=== PATIENT | male | born 1985 | race Hispanic/Latino ===

== ENCOUNTER 2018-05-21 02:50 | Emergency (ER) | payer OTHER ==
[2018-05-21] MEDS ORDERED: MORPHINE 4 MG/ML SYR ONE (03:07)
[2018-05-21] MEDS ORDERED: ONDANSETRON 4 MG/2 ML VIAL ONE (03:07)
[2018-05-21] MEDS ORDERED: NA CHLORIDE 0.9% 1,000 ML ONE (03:08)
[2018-05-21 03:17] LABS: Absolute Lymphocytes (CBC) 2.7 K/uL (0.7-4.9); Absolute Monocytes 0.5 K/uL (0.1-1.3); Absolute Neutrophil 2.1 K/uL (1.8-8.0); Basophils % 0.9 % (0-1.3); Eosinophils % 1.4 % (0-4.4); Hematocrit 46.4 % (39.6-49.0); Lymphocytes % 49.7 % (15.3-44.8); MPV 9.7 fL (7.6-11.3); Monocytes % 8.9 % (3.3-12.3); RBC Red Blood Cell Count 5.27 M/uL (4.33-5.43)
[2018-05-21 03:32] LABS: Albumin 4.4 g/dL (3.4-5.0); Bilirubin Direct 0.3 mg/dL (0-0.2); Bilirubin Total 0.9 mg/dL (0.2-1.0); Potassium 3.7 mmol/L (3.5-5.1)
--- NOTE | 2018-05-21 03:39 | EDPHYS ---
Physician Documentation [facility] Name: Flaquito Olivier Age: 33 yrs Sex: Male : 1985 Arrival Date: 05/21/2018 Time: 02:52 Bed 7 Private MD: ED Physician Moody Howe HPI: 05/21 03:25 This 33 yrs old Male presents to ER via Wheelchair with complaints of tw4 Abdominal Pain. 03:25 The patient complains of pain in the left mid back. The pain radiates to the left lower tw4 quadrant. Onset: The symptoms/episode began/occurred just prior to arrival, today. Modifying factors: The symptoms are alleviated by nothing. the symptoms are aggravated by palpation/percussion. Associated signs and symptoms: The patient has no apparent associated signs or symptoms. Severity of pain: At its worst the pain was severe in the emergency department the pain. The patient has not experienced similar symptoms in the past. Historical: - Allergies: 03:03 No Known Allergies; fc - Home Meds: 03:03 omeprazole 40 mg Oral cpDR 1 cap once daily [Active]; fc - PMHx: 03:03 GERD; fc - PSHx: 03:03 None; fc - Immunization history:: Last tetanus immunization: up to date Flu vaccine is up to date. - Social history:: Smoking status: Patient/guardian denies using tobacco, Patient uses alcohol, occasionally. Patient/guardian denies using street drugs. - Ebola Screening: : Patient negative for fever greater than or equal to 101.5 degrees Fahrenheit, and additional compatible Ebola Virus Disease symptoms Patient denies exposure to infectious person Patient denies travel to an Ebola-affected area in the 21 days before illness onset. ROS: 03:25 Constitutional: Negative for fever, chills, and weight loss, Eyes: Negative for injury, tw4 pain, redness, and discharge, Cardiovascular: Negative for chest pain, palpitations, and edema, Respiratory: Negative for shortness of breath, cough, wheezing, and pleuritic chest pain. 03:25 MS/Extremity: Negative for injury and deformity, Skin: Negative for injury, rash, and discoloration, Neuro: Negative for headache, weakness, numbness, tingling, and seizure. 03:25 Abdomen/GI: Positive for abdominal pain, Negative for nausea and vomiting, nausea, vomiting, and diarrhea, nausea, vomiting, abdominal cramps, abdominal distension, anorexia, dysphagia, black/tarry stool, rectal pain. 03:25 Back: Positive for pain at rest, flank pain, on the right, Negative for injury or acute deformity, decreased range of motion. Exam: 04:54 Head/Face: Normocephalic, atraumatic. Eyes: Pupils equal round and reactive to light, tw4 extra-ocular motions intact. Lids and lashes normal. Conjunctiva and sclera are non-icteric and not injected. Cornea within normal limits. Periorbital areas with no swelling, redness, or edema. Cardiovascular: Regular rate and rhythm with a normal S1 and S2. No gallops, murmurs, or rubs. Normal PMI, no JVD. No pulse deficits. Respiratory: Lungs have equal breath sounds bilaterally, clear to auscultation and percussion. No rales, rhonchi or wheezes noted. No increased work of breathing, no retractions or nasal flaring. Abdomen/GI: Soft, non-tender, with normal bowel sounds. No distension or tympany. No guarding or rebound. No evidence of tenderness throughout. Back: No spinal tenderness. No costovertebral tenderness. Full range of motion. MS/ Extremity: Pulses equal, no cyanosis. Neurovascular intact. Full, normal range of motion. Neuro: Awake and alert, GCS 15, oriented to person, place, time, and situation. Cranial nerves II-XII grossly intact. Motor strength 5/5 in all extremities. Sensory grossly intact. Cerebellar exam normal. Normal gait. 04:54 Constitutional: The patient appears in obvious distress, moderately distressed, in obvious pain. Vital Signs: 02:52 BP 164 / 93; Pulse 74; Resp 20; Temp 97.8(O); Pulse Ox 100% on R/A; Weight 81.65 kg fc (R); Height 5 ft. 6 in. (167.64 cm) (R); Pain 8/10; 03:49 BP 141 / 88; Pulse 75; Resp 18; Pulse Ox 100% on R/A; aa1 04:49 BP 139 / 93; Pulse 59; Resp 17; Pulse Ox 94% on R/A; Pain 0/10; tl1 05:08 BP 118 / 76; Pulse 62; Resp 17; Temp 98; Pulse Ox 97% on R/A; Pain 0/10; tl1 02:52 Body Mass Index 29.05 (81.65 kg, 167.64 cm) fc MDM: 02:56 Patient medically screened. 04:28 Differential diagnosis: nephrolithiasis, pyelonephritis. Data reviewed: vital signs, tw4 nurses notes. Data interpreted: Pulse oximetry: Interpretation: normal. Counseling: I had a detailed discussion with the patient and/or guardian regarding: the historical points, exam findings, and any diagnostic results supporting the discharge/admit diagnosis, the presence of at least one elevated blood pressure reading (>120/80) during this emergency department visit. Medication response: morphine partially relieved the patient's pain. Response to treatment: the patient's symptoms have markedly improved after treatment, and as a result, I will discharge patient. Special discussion: I discussed with the patient/guardian in detail that at this point there is no indication for admission to the hospital. It is understood, however, that if the symptoms persist or worsen the patient needs to return immediately for re-evaluation. 05/21 02:52 Order name: Basic Metabolic Panel; Complete Time: 04:17 05/21 04:17 Interpretation: Normal except: GFR 67. 05/21 02:52 Order name: CBC with Diff; Complete Time: 04:17 05/21 04:17 Interpretation: Normal except: NICKI% 39.1; LYM% 49.7. 05/21 02:52 Order name: Creatinine for Radiology; Complete Time: 04:18 05/21 04:18 Interpretation: Within normal limits: CRE 1.18. 05/21 02:52 Order name: Hepatic Function; Complete Time: 04:17 05/21 04:18 Interpretation: Normal except: BILID 0.3; GLOB 3.6. 05/21 02:52 Order name: Lipase 05/21 04:07 Order name: Urine Dipstick--Ancillary (enter results) ca5 05/21 02:52 Order name: IV Saline Lock; Complete Time: 03:04 05/21 02:52 Order name: Labs collected and sent; Complete Time: 03:04 05/21 02:57 Order name: CT Stone Protocol tw4 Administered Medications: 03:02 Drug: Zofran 4 mg Route: IVP; Infused Over: 2 mins; Site: right antecubital; tl1 04:17 Follow up: Response: No adverse reaction; Marked relief of symptoms; Nausea is decreasedtl1 03:02 Drug: NS 0.9% 1000 ml Route: IV; Rate: 1 bolus; Site: right antecubital; tl1 04:17 Follow up: IV Status: Completed infusion tl1 03:03 Drug: morphine 4 mg Route: IVP; Infused Over: 2 mins; Site: right antecubital; tl1 03:20 Follow up: Response: No adverse reaction; No change in condition; Pain is unchanged, tl1 physician notified 03:50 Drug: Dilaudid 1 mg Route: IVP; Infused Over: 2 mins; Site: right antecubital; tl1 04:17 Follow up: Response: No adverse reaction; Marked relief of symptoms; Pain is decreased tl1 04:16 Drug: TORadol 30 mg Route: IVP; Infused Over: 2 mins; Site: left antecubital; tl1 05:09 Follow up: Response: No adverse reaction; Marked relief of symptoms; Pain is decreased tl1 Disposition: 05/21/18 04:58 Discharged to Home. Impression: Calculus of ureter. - Condition is Stable. - Discharge Instructions: Renal Colic, Kidney Stones, [id number]. - Prescriptions for Ibuprofen 800 mg Oral Tablet - take 1 tablet by ORAL route every 8 hours As needed take with food; 30 tablet. Tylenol- Codeine #3 300-30 mg Oral Tablet - take 2 tablet by ORAL route every 6 hours As needed; 30 tablet. Zofran 4 mg Oral Tablet - take 1 tablet by ORAL route every 12 hours As needed; 6 tablet. - Medication Reconciliation Form, Thank You Letter, Antibiotic Education, Prescription Opioid Use form. - Follow up: Private Physician; When: Upon discharge from the Emergency Department; Reason: If symptoms return, Recheck today's complaints, Continuance of care. Follow up: Farrukh Soto MD; When: Upon discharge from the Emergency Department; Reason: If symptoms return, Recheck today's complaints, Continuance of care. - Problem is new. - Symptoms have improved. Signatures: Dispatcher [employer] EDMS Yesika Cueva RN RN aa1 Monica Cruz RN RN Cherelle Booker RN RN tl1 Moody Howe MD MD tw4 Corrections: (The following items were deleted from the chart) 03:44 03:38 05/21/2018 03:38 Discharged to Home. Impression: ovarian cyst right. Condition is tw4 Stable. Forms are Medication Reconciliation Form, Thank You Letter, Antibiotic Education, Prescription Opioid Use. Follow up: Private Physician; When: Upon discharge from the Emergency Department; Reason: Further diagnostic work-up. Problem is new. Symptoms have improved. tw4 05:15 04:58 05/21/2018 04:58 Discharged to Home. Impression: Calculus of ureter. Condition is aa1 Stable. Prescriptions for Ibuprofen 800 mg Oral Tablet - take 1 tablet by ORAL route every 8 hours As needed take with food; 30 tablet, Tylenol-Codeine #3 300-30 mg Oral Tablet - take 2 tablet by ORAL route every 6 hours As needed; 6 tablet. and Forms are Medication Reconciliation Form, Thank You Letter, Antibiotic Education, Prescription Opioid Use. Follow up: Private Physician; When: Upon discharge from the Emergency Department; Reason: If symptoms return, Recheck today's complaints, Continuance of care. Follow up: Farrukh Soto; When: Upon discharge from the Emergency Department; Reason: If symptoms return, Recheck today's complaints, Continuance of care. Problem is new. Symptoms have improved. tw4
--- NOTE | 2018-05-21 03:39 | ER ---
Nurse's Notes [facility] Name: Flaquito Olivier Age: 33 yrs Sex: Male : 1985 Arrival Date: 05/21/2018 Time: 02:52 Bed 7 Private MD: Diagnosis: Calculus of ureter Presentation: 05/21 02:52 Method Of Arrival: Wheelchair 02:52 Presenting complaint: Patient states: that he is having pain that starts in his left fc lower back, radiates around to his left lower abd and his left groin. States that he is having dark urine. Transition of care: patient was not received from another setting of care. Onset of symptoms was May 21, 2018 at 01:45. Risk Assessment: Do you want to hurt yourself or someone else? Patient reports no desire to harm self or others. Initial Sepsis Screen: Does the patient meet any 2 criteria? No. Patient's initial sepsis screen is negative. Does the patient have a suspected source of infection? No. Patient's initial sepsis screen is negative. Care prior to arrival: None. 02:52 Acuity: PLACIDO 3 fc Historical: - Allergies: 03:03 No Known Allergies; fc - Home Meds: 03:03 omeprazole 40 mg Oral cpDR 1 cap once daily [Active]; fc - PMHx: 03:03 GERD; fc - PSHx: 03:03 None; fc - Immunization history:: Last tetanus immunization: up to date Flu vaccine is up to date. - Social history:: Smoking status: Patient/guardian denies using tobacco, Patient uses alcohol, occasionally. Patient/guardian denies using street drugs. - Ebola Screening: : Patient negative for fever greater than or equal to 101.5 degrees Fahrenheit, and additional compatible Ebola Virus Disease symptoms Patient denies exposure to infectious person Patient denies travel to an Ebola-affected area in the 21 days before illness onset. Screenin:02 Abuse screen: Denies threats or abuse. Nutritional screening: No deficits noted. Tuberculosis screening: No symptoms or risk factors identified. Fall Risk None identified. Assessment: 03:04 General: Appears in no apparent distress. uncomfortable, Behavior is calm, cooperative, aa1 appropriate for age. Pain: Complains of pain in left lower quadrant Pain radiates to groin Pain currently is 7 out of 10 on a pain scale. Quality of pain is described as shooting, Pain began 1 hour ago. Neuro: Level of Consciousness is awake, alert, obeys commands, Oriented to person, place, time, situation. Cardiovascular: Heart tones S1 S2 present Rhythm is regular. Respiratory: Airway is patent Respiratory effort is even, unlabored, Respiratory pattern is regular, symmetrical. GI: Abdomen is non-distended, Bowel sounds present X 4 quads. Abd is soft X 4 quads. : No signs and/or symptoms were reported regarding the genitourinary system. EENT: No signs and/or symptoms were reported regarding the EENT system. Derm: Skin is intact, is healthy with good turgor, Skin is pink, warm \T\ dry. Musculoskeletal: Circulation, motion, and sensation intact. Capillary refill < 3 seconds. 03:49 Reassessment: Patient appears in no apparent distress at this time. Patient and/or aa1 family updated on plan of care and expected duration. Pain level reassessed. Patient is alert, oriented x 3, equal unlabored respirations, skin warm/dry/pink. Awaiting CT results. 05:14 Reassessment: Patient appears in no apparent distress at this time. Patient is alert, aa1 oriented x 3, equal unlabored respirations, skin warm/dry/pink. Discussed d/c \T\ f/u instructions with pt; denies questions or concerns at this time Patient states feeling better. Patient states symptoms have improved. Vital Signs: 02:52 BP 164 / 93; Pulse 74; Resp 20; Temp 97.8(O); Pulse Ox 100% on R/A; Weight 81.65 kg (R); Height 5 ft. 6 in. (167.64 cm) (R); Pain 8/10; 03:49 BP 141 / 88; Pulse 75; Resp 18; Pulse Ox 100% on R/A; aa1 04:49 BP 139 / 93; Pulse 59; Resp 17; Pulse Ox 94% on R/A; Pain 0/10; tl1 05:08 BP 118 / 76; Pulse 62; Resp 17; Temp 98; Pulse Ox 97% on R/A; Pain 0/10; tl1 02:52 Body Mass Index 29.05 (81.65 kg, 167.64 cm) ED Course: 02:52 Patient arrived in ED. am2 02:52 Moody Howe MD is Attending Physician. tw4 02:52 Arm band placed on Patient placed in an exam room, on a stretcher. fc 02:55 Initial lab(s) drawn, by me, sent to lab. Inserted saline lock: 20 gauge in right aa1 antecubital area, using aseptic technique. Blood collected. 03:01 Triage completed. fc 03:02 Patient has correct armband on for positive identification. Placed in gown. Bed in low fc position. Call light in reach. 03:[address] via wheelchair. kw1 03:23 CT Stone Protocol In Process Unspecified. EDMS 03:23 CT completed. Patient tolerated procedure well. Patient moved back from CT. kw1 03:48 Yesika Cueva, MEENAKSHI is Primary Nurse. aa1 04:57 Farrukh Soto MD is Referral Physician. tw4 05:10 No provider procedures requiring assistance completed. IV discontinued, intact, tl1 bleeding controlled, No redness/swelling at site. Pressure dressing applied. Administered Medications: 03:02 Drug: Zofran 4 mg Route: IVP; Infused Over: 2 mins; Site: right antecubital; tl1 04:17 Follow up: Response: No adverse reaction; Marked relief of symptoms; Nausea is decreasedtl1 03:02 Drug: NS 0.9% 1000 ml Route: IV; Rate: 1 bolus; Site: right antecubital; tl1 04:17 Follow up: IV Status: Completed infusion tl1 03:03 Drug: morphine 4 mg Route: IVP; Infused Over: 2 mins; Site: right antecubital; tl1 03:20 Follow up: Response: No adverse reaction; No change in condition; Pain is unchanged, tl1 physician notified 03:50 Drug: Dilaudid 1 mg Route: IVP; Infused Over: 2 mins; Site: right antecubital; tl1 04:17 Follow up: Response: No adverse reaction; Marked relief of symptoms; Pain is decreased tl1 04:16 Drug: TORadol 30 mg Route: IVP; Infused Over: 2 mins; Site: left antecubital; tl1 05:09 Follow up: Response: No adverse reaction; Marked relief of symptoms; Pain is decreased tl1 Outcome: 03:38 Discharge ordered by . tw4 04:58 Discharge ordered by . tw4 05:14 Discharged to home ambulatory, with significant other. aa1 05:14 Condition: good 05:14 Discharge instructions given to patient, Instructed on discharge instructions, follow up and referral plans. medication usage, Demonstrated understanding of instructions, follow-up care, medications, Prescriptions given X 3. 05:15 Patient left the ED. aa1 Signatures: Dispatcher [employer] EDMS Yesika Cueva RN RN aa1 Monica Cruz RN RN Cherelle Booker RN RN tl1 Mary Moreno Kimberly 1 Moody Howe MD MD tw4
[2018-05-21] MEDS ORDERED: HYDROMORPHONE HCL 1 MG/ML INJ ONE (03:47)
[2018-05-21 04:19] LABS: Urine Blood 3+ (NEG); Urine Glucose NEGATIVE (NEG); Urine Protein 1+ (NEG); Urine Specific Gravity >1.030 (1.005-1.030); Urine pH 5.5 (5.0-7.0)
[2018-05-21] MEDS ORDERED: KETOROLAC 30 MG/ML INJ ONE (04:23)
--- NOTE | 2018-05-21 08:33 | RAD REPORT ---
EXAM DESCRIPTION: CT - Stone Protocol - 05/21/2018 6:02 am CLINICAL HISTORY: Abdominal pain. Left abdominal pain COMPARISON: None. TECHNIQUE: Computed axial tomography of the abdomen pelvis was obtained without oral or IV contrast. Lack of IV and oral contrast limits evaluation of solid organs, bowel, and vessels. Coronal reformat karen images were obtained and reviewed. A preliminary report was generated by [employer] and r anita prior to dictation All CT scans are performed using dose optimization technique as appropriate and may include automated exposure control or mA/KV adjustment according to patient size. FINDINGS: A 1 millimeter nonobstructing right renal calculus. A left renal calculus is not present. Mild left hydronephrosis. A 2 millimeter calculus is present within the distal left ureter near the U VJ The liver, spleen, pancreas and adrenals appear grossly normal There is no evidence of diverticulitis. The appendix appears normal The transverse and left colon is decompressed. Mild posterior subluxation of L5 on S1 IMPRESSION: 2 millimeter calculus distal left ureter resulting in mild left hydronephrosis
== END 2018-05-21 05:15 | disposition home or self-care (01) ==
LOC: ER 02:50
DX: M54.9 Dorsalgia, unspecified (principal); K21.9 Gastro-esophageal reflux disease without esophagitis; N20.1 Calculus of ureter
CPT/HCPCS: 36415; 74176; 76377; 80048; 80076; 81003; 83690; 85025; 99284; J1170; J2405; J7030